=== PATIENT | female | born 1985 | race Caucasian/White ===

== ENCOUNTER → 2022-06-23 15:57 | Outpatient (CLI) | payer BC, SELFPAY ==
[2022-06-23 16:57] LABS: Erythrocyte Sedimentation Rate 18 mm/hr (0-20)
[2022-06-23 23:35] LABS: Vitamin B12 860 pg/mL (239-931)
[2022-06-23 23:41] LABS: Folate > 20.00 ng/mL
== END ==
LOC: LAB 15:58
PROVIDERS: PCP Nurse Practitioner Family; Visit Provider Specialist
DX: R20.0 Anesthesia of skin (principal); R20.2 Paresthesia of skin; R41.3 Other amnesia; M32.9 Systemic lupus erythematosus, unspecified; R21 Rash and other nonspecific skin eruption; R90.89 Other abnormal findings on diagnostic imaging of central nervous system
CPT/HCPCS: 36415; 82607; 82746; 85651